=== PATIENT | female | born 1945 | race Caucasian/White ===

== ENCOUNTER → 2018-03-04 09:59 | Outpatient (CLI) | payer MEDICARE, OTHER, SELFPAY ==
--- NOTE | 2018-03-04 | DI.MG.S_ITS ---
BILATERAL DIGITAL SCREENING MAMMOGRAM 3D/2D WITH CAD: 03/04/2018 CLINICAL: Routine screening. Family history of breast cancer. Comparison is made to exams dated: 11/12/2016 mammogram, 11/08/2015 mammogram, and 10/05/2014 mammogram - [facility]. There are scattered fibroglandular elements in both breasts. Current study was also evaluated with a Computer Aided Detection (CAD) system. No significant masses, calcifications, or other findings are seen in either breast. There has been no significant interval change. IMPRESSION: NEGATIVE There is no mammographic evidence of malignancy. A 1 year screening mammogram is recommended.(03/05/2019) This exam was interpreted at Station ID: [id number]. NOTE: For mammograms, a report in lay terms will be sent to the patient. Approximately 15% of breast malignancies will not be visualized mammographically. In the management of a palpable breast mass, a negative mammogram must not discourage biopsy of a clinically suspicious lesion. Electronically Signed By: Atul walden/dane:03/04/2018 10:53:59 letter sent: Normal Exam ACR BI-RADS Category 1: Negative 3341F
== END ==
PROVIDERS: PCP Internal Medicine; Visit Provider Internal Medicine
DX: Z12.31 Encounter for screening mammogram for malignant neoplasm of breast (principal); Z80.3 Family history of malignant neoplasm of breast
CPT/HCPCS: 77063; 77067

== ENCOUNTER → 2019-03-17 09:24 | Outpatient (CLI) | payer MEDICARE, OTHER, SELFPAY ==
--- NOTE | 2019-03-17 | DI.MG.S_ITS ---
BILATERAL DIGITAL SCREENING MAMMOGRAM 3D/2D WITH CAD: 03/17/2019 CLINICAL: Routine screening. Family history of breast cancer. Comparison is made to exams dated: 03/04/2018 mammogram, 06/20/2017 mammogram, and 11/12/2016 mammogram - [facility]. There are scattered fibroglandular elements in both breasts. Current study was also evaluated with a Computer Aided Detection (CAD) system. No significant masses, calcifications, or other findings are seen in either breast. There has been no significant interval change. IMPRESSION: NEGATIVE There is no mammographic evidence of malignancy. A 1 year screening mammogram is recommended. This exam was interpreted at Station ID: [id number]. NOTE: For mammograms, a report in lay terms will be sent to the patient. Approximately 15% of breast malignancies will not be visualized mammographically. In the management of a palpable breast mass, a negative mammogram must not discourage biopsy of a clinically suspicious lesion. Electronically Signed By: Montana espinoza/dane:03/17/2019 11:22:38 letter sent: Normal Exam ACR BI-RADS Category 1: Negative 3341F
== END ==
PROVIDERS: PCP Internal Medicine; Visit Provider Internal Medicine
DX: Z12.31 Encounter for screening mammogram for malignant neoplasm of breast (principal); Z80.3 Family history of malignant neoplasm of breast
CPT/HCPCS: 77063; 77067

== ENCOUNTER → 2020-01-19 15:49 | Outpatient (CLI) | payer MEDICARE, OTHER, SELFPAY ==
--- NOTE | 2020-01-19 | DI.RAD.S_ITS ---
PROCEDURE: XR TOE RT MIN 2V INDICATIONS: jammed right grt toe 8 days ago, tender at IP joint TECHNIQUE: 3 views of the right toe(s) acquired. COMPARISON: None. FINDINGS: Bones: Intra-articular fracture of the distal phalanx of the great toe. Gross articular surface incongruity. 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 Soft tissues: No suspicious soft tissue densities. Soft tissue swelling. IMPRESSION: Intra-articular fracture of the distal phalanx of the great toe. Dictated by: Braulio Saenz M.D. on 01/19/2020 at 16:24 Approved by: Braulio Saenz M.D. on 01/19/2020 at 16:25
== END ==
PROVIDERS: PCP Internal Medicine; Visit Provider Family Medicine
DX: S92.421A Displaced fracture of distal phalanx of right great toe, initial encounter for closed fracture (principal); M19.071 Primary osteoarthritis, right ankle and foot; W22.8XXA Striking against or struck by other objects, initial encounter
CPT/HCPCS: 73660

== ENCOUNTER 2020-02-24 09:58 | Emergency (ER) | payer MEDICARE, OTHER, SELFPAY ==
[2020-02-24] VITALS (11 sets, daily range): BP systolic 96–164; BP diastolic 60–77; PULSE 66–80; RESP 18; TEMP 37.1; O2SAT 97–99; BMI 22.1
[2020-02-24 10:34] LABS: Prothrombin Time 11.5 SECONDS (10.1-12.7)
[2020-02-24 10:36] LABS: Add Manual Diff / Slide Review NO; Basophils Absolute Auto 0 /uL (0-100); Basophils Percent Auto 0.5 % (0-2); Eosinophils Absolute Auto 100 /uL (0-450); Eosinophils Percent Auto 1.1 % (2-4); Hematocrit 36.7 % (36-46); Hemoglobin 12.2 g/dL (12.0-16.0); Lymphocytes Absolute Auto 1200 /uL (1100-4500); Lymphocytes Percent Auto 22.3 % (25-40); Mean Corpuscular HGB Conc 33.2 % (30-36); Mean Corpuscular Volume 81.3 fL (80-100); Monocytes Absolute Auto 700 /uL (0-900); Monocytes Percent Auto 13.7 % (3-14); Neutrophils Absolute Auto 3300 /uL (1500-7000); Neutrophils Percent Auto 62.4 % (50-75); PTT Partial Thromboplastin Tim 31 SECONDS (26.4-36.2); Platelet Count 211 X10^3/uL (150-400); Red Blood Cell Count 4.51 X10^6/uL (4.0-5.2); Red Cell Distribution Width 13.2 % (11.6-14.8); White Blood Cell Count 5.3 X10^3/uL (4.5-11.0)
[2020-02-24 10:40] LABS: Alanine Aminotransferase 45 IU/L (<35); Albumin Globulin Ratio 1.3 (1.0-2.8); Alkaline Phosphatase 116 U/L (38-126); Aspartate Aminotransferase 34 IU/L (14-36); Bilirubin Total 0.4 mg/dL (0.2-1.3); Blood Urea Nitrogen 16 mg/dL (7-17); Calcium 9.5 mg/dL (8.4-10.2); Carbon Dioxide 30 mmol/L (22-32); Chloride 105 mmol/L (98-107); Estimated Glomerular Filt Rate > 60.0 mL/min (>60); Globulin 3.1 g/dL (1.7-4.1); Glucose 77 mg/dL (80-110); HEMOLYSIS < 15 (0-50); Lipase 115 U/L (23-300); Potassium 3.9 mmol/L (3.4-5.1); Sodium 141 mmol/L (137-145); Total Protein 7.1 g/dL (6.3-8.2)
--- NOTE | 2020-02-24 12:17 | DI.CT.S_ITS ---
PROCEDURE: CT ABDOMEN PELVIS W CON INDICATIONS: acute onset RLQ pain TECHNIQUE: After the administration of intravenous contrast, 5 mm thick sections acquired from the diaphragm to the symphysis. 5 mm coronal and sagittal reformats were acquired. For radiation dose reduction, the following was used: automated exposure control, adjustment of mA and/or kV according to patient size. COMPARISON: [facility], CT, ABDOMEN/PELVIS WITH CONTRAST, 02/16/2008, 16:50. FINDINGS: Image quality: Excellent. ABDOMEN: Lung bases: Lung bases are clear. Heart size is normal. Subcentimeter hepatic foci are statistically cysts or hemangiomas, although technically too small to characterize accurately and therefore nonspecific. Gallbladder contains sub 5 mm layering gallstones without CT evidence of acute cholecystitis . Biliary system is non dilated. Pancreas enhances normally. Spleen is normal in size and enhancement. No adrenal nodules. Kidneys demonstrate normal size and enhancement, without hydronephrosis. Midline ventral hernia containing fat and bowel loops. No evidence of obstruction seen at this time. Large amount of diffuse stool noted. No free fluid or air. Appendix is not clearly identified however no suspicious pericecal inflammatory changes are seen. Nodes and vessels: No retroperitoneal or mesenteric adenopathy by size criteria. Aorta and inferior vena cava are normal in size. PELVIS: Genitourinary: Bladder wall thickness is normal. Miscellaneous: No inguinal hernias or adenopathy. Bones: No vertebral body compression fracture. Spondylytic changes and facet arthropathy. IMPRESSION: Appendix is not clearly identified however no suspicious pericecal inflammatory changes are seen. Midline ventral hernia containing fat and bowel loops. No specific evidence for bowel obstruction seen at this time Additional chronic and incidental findings as above. Dictated by: Braulio Saenz M.D. on 02/24/2020 at 13:34 Approved by: Braulio Saenz M.D. on 02/24/2020 at 13:38
--- NOTE | 2020-02-24 13:22 | ED_ITS ---
HPI - Abdominal Pain General Chief Complaint: Abdominal Pain Stated Complaint: Has been having lower right abdominal pain Time Seen by Provider: 02/24/20 10:28 Source: patient Mode of arrival: Family Vehicle Limitations: no limitations History of Present Illness HPI narrative: 74-year-old woman with hyperlipidemia who presents with right lower quadrant abdominal pain. It began at 7:00 a.m. yesterday with intermit tent sharp stabbing pain persisted through the day and 3:00 a.m. walker up with consistency. She notes that it continues to be a sharp colicky pain in the right lower quadrant not associated with dysuria or flank pain. She has not noticed any hematuria. Denies any fevers, nausea, vomiting, diarrhea. She did have a bowel movement recently that did not influence her pain at all. She denies any chest pain, palpitations or dyspnea. Related Data Home Medications Medication Instructions Recorded Confirmed CALCIUM ACETATE (Phoslo) 0 PO * UK DOSE/FREQUENCY #0 07/07/07 CHOLECALCIFEROL (VITAMIN D3) 0 PO WEEKLY #0 07/07/07 (Vitamin D3) LEVOTHYROXINE SODIUM (Synthroid) 0 PO *UK DOSE/FREQUENCY* #0 07/07/07 Review of Systems Review of Systems Narrative: Remainder of review of systems including constitutional, ENT, cardiovascular, respiratory, GI, , musculoskeletal, skin, neurologic and psychiatric systems reviewed and are unremarkable except as noted in HPI. Patient History Social History Smoking Status: Never smoker Smoking Status: Never smoker alcohol intake frequency: 0-2 drinks per day Substance Use Type: does not use Exam Narrative Exam Narrative: General: Healthy appearing, in no acute distress. Able to give a complete and coherent history. Well-nourished well-developed HEENT: Moist mucous membranes, normal sclera with reactive pupils, Neck: No JVD, supple Respiratory: Lungs are clear to auscultation, no wheezing no rales no rhonchi. Full and symmetrical air movement Cardiac: Regular rate and rhythm with a soft 2/6 systolic ejection murmur no bruits Abdomen: Soft, nontender to palpation (unable to reproduce her pain complaints) good bowel tones, no flank pain Skin: Warm and dry, no rashes Neurologic: Grossly neurologically intact with no obvious asymmetries or ab normalities Extremities: No trauma, well perfused Psych: Cooperative, appropriate insight and affect Initial Vital Signs Initial Vital Signs: Vital Signs Pulse Rate 80 02/24/20 10:12 Pulse Oximetry 97 02/24/20 10:12 Course Orders Ordered: ED Orders 02/24/20 10:20 Complete Blood Count AUTO DIFF Stat Comprehensive Metabolic Panel Stat Lipase Stat Partial Thromboplastin Time Stat Prothrombin Time INR Stat 02/24/20 11:08 EKG-12 Lead Stat 02/24/20 12:17 CT abdomen pelvis w con Stat Vital Signs Vital signs: Vital Signs - 8 hr 02/24/20 10:12 02/24/20 10:13 02/24/20 10:24 Temperature 98.7 F Pulse Rate 80 79 79 Respiratory Rate 18 Blood Pressure 164/77 H 164/77 H Pulse Oximetry 97 99 98 02/24/20 10:30 02/24/20 11:26 02/24/20 11:28 Temperature Pulse Rate 75 66 69 Respiratory Rate Blood Pressure 131/60 Pulse Oximetry 97 99 98 02/24/20 11:30 02/24/20 12:00 Temperature Pulse Rate 67 69 Respiratory Rate Blood Pressure Pulse Oximetry 99 99 MDM - Abdominal Pain Medical Records Attestation: I reviewed the patient's medical records. Lab Data Attestation: I reviewed the patient's lab results. Result diagrams: 02/24/20 10:20 02/24/20 10:20 Labs: Lab Results 02/24/20 02/24/20 02/24/20 Range/Units 10:20 10:20 10:20 WBC 5.3 (4.5-11.0) X10^3/uL RBC 4.51 (4.0-5.2) X10^6/uL Hgb 12.2 (12.0-16.0) g/dL Hct 36.7 (36-46) % MCV 81.3 (80-100) fL MCH 27.0 (26-34) PG MCHC 33.2 (30-36) % RDW 13.2 (11.6-14.8) % Plt Count 211 (150-400) X10^3/uL Neut % (Auto) 62.4 (50-75) % Lymph % (Auto) 22.3 L (25-40) % [place] % (Auto) 13.7 (3-14) % Eos % (Auto) 1.1 L (2-4) % Baso % (Auto) 0.5 (0-2) % Neut # (Auto) 3300 (2430-8396) /uL Lymph # (Auto) 1200 (4885-0271) /uL [place] # (Auto) 700 (0-900) /uL Eos # (Auto) 100 (0-450) /uL Baso # (Auto) 0 (0-100) /uL PT 11.5 (10.1-12.7) SECONDS INR 1.0 (0.9-1.3) APTT 31 (26.4-36.2) SECONDS Sodium 141 (137-145) mmol/L Potassium 3.9 (3.4-5.1) mmol/L Chloride 105 (98-107) mmol/L Carbon Dioxide 30 (22-32) mmol/L BUN 16 (7-17) mg/dL Creatinine 0.47 L (0.52-1.04) mg/dL Estimated GFR > 60.0 (>60) mL/min BUN/Creatinine Ratio 34.0 H (6-22) Glucose 77 L (80-110) mg/dL Calcium 9.5 (8.4-10.2) mg/dL Total Bilirubin 0.4 (0.2-1.3) mg/dL AST 34 (14-36) IU/L ALT 45 H (<35) IU/L Alkaline Phosphatase 116 (38-126) U/L Total Protein 7.1 (6.3-8.2) g/dL Albumin 4.0 (3.5-5.0) g/dL Globulin 3.1 (1.7-4.1) g/dL Albumin/Globulin Ratio 1.3 (1.0-2.8) Lipase 115 (23-300) U/L Point of care testing: Urine Dip Bedside Urine Glucose Negative Bedside Urine Bilirubin - Negative Bedside Urine Ketone - Negative Urine Specific [place] 1.010 Bedside Urine Occult Blood - Negative Bedside Urine pH 7.5 Bedside Urine Protein - Negative Bedside Urine Urobilinogen - Negative Bedside Urine Nitrite - Negative Bedside Urine Leukocytes - Negative Esterase Imaging Data CT scan - abdomen/pelvis: Radiologist's Impression: FINDINGS: Image quality: Excellent. ABDOMEN: Lung bases: Lung bases are clear. Heart size is normal. Subcentimeter hepatic foci are statistically cysts or hemangiomas, although technically too small to characterize accurately and therefore nonspecific. Gallbladder contains sub 5 mm layering gallstones without CT evidence of acute cholecystitis . Biliary system is non dilated. Pancreas enhances normally. Spleen is normal in size and enhancement. No adrenal nodules. Kidneys demonstrate normal size and enhancement, without hydronephrosis. Midline ventral hernia containing fat and bowel loops. No evidence of obstruction seen at this time. Large amount of diffuse stool noted. No free fluid or air. Appendix is not clearly identified however no suspicious pericecal inflammatory changes are seen. Nodes and vessels: No retroperitoneal or mesenteric adenopathy by size criteria. Aorta and inferior vena cava are normal in size. PELVIS: Genitourinary: Bladder wall thickness is normal. Miscellaneous: No inguinal hernias or adenopathy. Bones: No vertebral body compression fracture. Spondylytic changes and facet arthropathy. IMPRESSION: Appendix is not clearly identified however no suspicious pericecal inflammatory changes are seen. Midline ventral hernia containing fat and bowel loops. No specific evidence for bowel obstruction seen at this time Additional chronic and incidental findings as above. Dictated by: Braulio Saenz M.D. on 02/24/2020 at 13:34 ECG Data Interpretation: Sinus rhythm at a rate of 69 Normal intervals, normal axis No acute ST T wave changes or other ischemic findings MDM Narrative Medical decision making narrative: 74-year-old woman presents with 24 hours of colicky right lower quadrant pain without evidence of infection, appendicitis, kidney stone, UTI, pelvic infection, bowel obstruction/mass/tumor. No evidence of zoster other things that might offer an alternate explanation. When asked about bowel movements she was not even from milieu with the idea of stool softeners as that has never been an issue for her in her lifetime At this point I explained that I do not have a full explanation for her abdominal pain however there are no life-threatening causes identified currently. Clearly reviewed if she has additional problems that she should return to the emergency room for additional evaluation. She is safe for home discharge Discharge Plan Departure Patient Disposition: Home Clinical Impression: Abdominal pain Qualifiers: Abdominal location: left lower quadrant Qualified Code(s): R10.32 - Left lower quadrant pain Instructions: DI for Abdominal Pain-Adult Activity Restrictions/Additional Instructions: Thank you for coming in today Your workup was very reassuring. Your blood work did not suggest acute abnormalities or infection. Your CT scan similarly did not show significant infection (specifically there is no appendicitis), kidney stones, bowel obstruction, twists or turns to your bowel that are unusual or any tumors or masses. At this point it is safe for you to go home. If you note that you are having fevers, increasing pain, any blood in your stool, vomiting or new symptoms it would be very appropriate to return to the ER for additional evaluation. I hope you feel better Prescriptions: No Action CALCIUM ACETATE (Phoslo) 0 PO * UK DOSE/FREQUENCY Qty: 0 RF: 0 LEVOTHYROXINE SODIUM (Synthroid) 0 PO *UK DOSE/FREQUENCY* Qty: 0 RF: 0 CHOLECALCIFEROL (VITAMIN D3) (Vitamin D3) 0 PO WEEKLY Qty: 0 RF: 0 Referrals: Homer Dawson MD [Primary Care Provider] -
== END 2020-02-24 14:07 | disposition home or self-care (01) ==
PROVIDERS: Emergency Provider Emergency Medicine; PCP Internal Medicine
DX: R10.31 Right lower quadrant pain (principal)
CPT/HCPCS: 36415; 74177; 80053; 81003; 83690; 85025; 85610; 85730; 93005; 99283; Q9967

== ENCOUNTER → 2020-06-20 19:34 | Outpatient (ROUT) | payer MEDICARE, OTHER, SELFPAY ==
[2020-06-20 20:38] LABS: Prolactin 12.9 ng/mL (3.0-18.6)
[2020-06-22 06:39] LABS: Thyroid Peroxidase Antibodies >600 IU/mL (0-34)
== END ==
PROVIDERS: PCP Internal Medicine; Visit Provider Internal Medicine
DX: E22.1 Hyperprolactinemia (principal); E05.90 Thyrotoxicosis, unspecified without thyrotoxic crisis or storm
CPT/HCPCS: 83001; 84146; 84445; 86376

== ENCOUNTER → 2020-06-22 09:12 | Outpatient (CLI) | payer MEDICARE, OTHER, SELFPAY ==
--- NOTE | 2020-06-22 | DI.MRI.S_ITS ---
PROCEDURE: MR BRAIN (IAC) WWO CON INDICATIONS: Unspecified hearing loss, left ear Thyrotoxicosis TECHNIQUE: Noncontrast sagittal T1 spin echo, axial FLAIR, axial gradient echo, axial diffusion and ADC through the brain. Axial thin-slice 3D CISS, coronal TruFISP, axial T1 spin echo with fat saturation through the internal auditory canals. After the administration of contrast, thin slice axial and coronal T1 spin echo with fat saturation through the internal auditory canals, and axial T1 spin echo with fat saturation through the brain. COMPARISON: None. FINDINGS: Image quality: Excellent. Cerebellopontine angles: No cerebellopontine angle masses. Inner ear structures appear normally formed. No suspicious enhancement in the internal auditory canal or along the course of the 7th cranial nerve. CSF spaces: Ventricles are normal in size and shape. No extra-axial fluid collections. Basal cisterns are patent. Brain: No intracranial bleeds or mass effects. Hernandez-white matter interface is intact. No abnormal intracranial enhancement. Diffusion weighted images demonstrate no acute ischemic insults. Brain parenchymal volume loss is seen. Chronic small vessel ischemic changes can be seen. Brainstem appears normal. Normal intravascular flow voids are present. Skull and face: Calvarial marrow signal is normal. Orbits appear normal. Sinuses: Sinuses and mastoids are clear. IMPRESSION: No significant abnormality is seen. Specifically, no masses or abnormal enhancement are seen within the cerebellopontine angle cisterns or within the internal auditory canals. Note is made of age-appropriate brain parenchymal volume loss and chronic small vessel ischemic changes. Dictated by: Spike Hill M.D. on 06/22/2020 at 9:22 Approved by: Spike Hill M.D. on 06/22/2020 at 9:23
--- NOTE | 2020-06-22 | DI.US.S_ITS ---
PROCEDURE: US THYROID INDICATIONS: Unspecified hearing loss, left ear Thyrotoxicosis TECHNIQUE: Real-time scanning was performed of the thyroid gland, with image documentation. COMPARISON: None. FINDINGS: Right: Thyroid lobe measures 4.8 x 1.8 x 2.1 cm, and is heterogeneous in echo pattern with diffuse increased vascularity, without focal nodule identified. Left: Thyroid lobe measures 4.5 x 1.4 x 1.8 cm, and is heterogeneous in echo pattern with diffuse increased vascularity without focal nodule identified. Isthmus: 2 mm thick. IMPRESSION: Diffuse heterogeneous thyroid without focal nodules with increased vascularity. Findings are consistent with possible acute thyroiditis. Dictated by: Aaron Campos M.D. on 06/22/2020 at 11:38 Approved by: Aaron Campos M.D. on 06/22/2020 at 11:41
== END ==
PROVIDERS: PCP Internal Medicine; Referring Provider Internal Medicine; Visit Provider Internal Medicine
DX: H91.92 Unspecified hearing loss, left ear (principal); E05.90 Thyrotoxicosis, unspecified without thyrotoxic crisis or storm
CPT/HCPCS: 70553; 76536; A9579

== ENCOUNTER → 2020-07-18 08:38 | Outpatient (CLI) | payer MEDICARE, OTHER, SELFPAY ==
--- NOTE | 2020-07-18 | DI.NM.S_ITS ---
PROCEDURE: NM UPTAKE AND SCAN RADIOPHARMACEUTICAL: 380 ?Ci I-123 sodium iodide by mouth. INDICATIONS: Thyrotoxicosis, unspecified TECHNIQUE: I-123 sodium iodide was administered orally. Anterior neck images were obtained, and iodine uptake by the thyroid gland calculated using transport coordinator's software. COMPARISON: None. FINDINGS: Morphology: The thyroid gland has normal morphology and uniform activity. No 'cold' or 'hot' thyroid nodules are identified. Uptake: 6 hour thyroid uptake is 39.6%; normal ranges are from 6-18%. 24 hour thyroid uptake is 64.3 % ; normal ranges are from 10-30%. IMPRESSION: Abnormal elevated 6 hour and 24 hour isotope uptake with reference to the normal range values as noted above. Dictated by: Truong Spencer M.D. on 07/19/2020 at 9:56 Approved by: Truong Spencer M.D. on 07/19/2020 at 9:59
== END ==
PROVIDERS: PCP Internal Medicine; Referring Provider Internal Medicine; Visit Provider Internal Medicine
DX: E05.90 Thyrotoxicosis, unspecified without thyrotoxic crisis or storm (principal)
CPT/HCPCS: 78014; A9516

== ENCOUNTER → 2020-10-04 09:43 | Outpatient (CLI) | payer MEDICARE, OTHER, SELFPAY | PROVIDERS: PCP Internal Medicine; Referring Provider Internal Medicine; Visit Provider Internal Medicine | DX: M85.88 Other specified disorders of bone density and structure, other site (principal); Z78.0 Asymptomatic menopausal state; E05.00 Thyrotoxicosis with diffuse goiter without thyrotoxic crisis or storm | CPT/HCPCS: 77080 ==

== ENCOUNTER → 2020-10-12 10:51 | Outpatient (CLI) | payer MEDICARE, OTHER, SELFPAY ==
--- NOTE | 2020-10-12 | DI.MG.S_ITS ---
BILATERAL DIGITAL SCREENING MAMMOGRAM 3D/2D WITH CAD: 10/12/2020 CLINICAL: Routine screening. Family history of breast cancer. Comparison is made to exams dated: 03/17/2019 mammogram, 03/04/2018 mammogram, 06/20/2017 mammogram, and 11/12/2016 mammogram - [facility]. There are scattered fibroglandular elements in both breasts. Current study was also evaluated with a Computer Aided Detection (CAD) system. There are mole markers on both breasts. No significant masses, calcifications, or other findings are seen in either breast. There has been no significant interval change. IMPRESSION: NEGATIVE There is no mammographic evidence of malignancy. A 1 year screening mammogram is recommended. This exam was interpreted at Station ID: [id number]. NOTE: For mammograms, a report in lay terms will be sent to the patient. Approximately 15% of breast malignancies will not be visualized mammographically. In the management of a palpable breast mass, a negative mammogram must not discourage biopsy of a clinically suspicious lesion. Electronically Signed By: Rosalio Bone acr/penrad:10/12/2020 17:27:31 letter sent: Normal Exam ACR BI-RADS Category 1: Negative 3341F
== END ==
PROVIDERS: PCP Internal Medicine; Referring Provider Internal Medicine; Visit Provider Internal Medicine
DX: Z12.31 Encounter for screening mammogram for malignant neoplasm of breast (principal); Z80.3 Family history of malignant neoplasm of breast
CPT/HCPCS: 77063; 77067

== ENCOUNTER → 2020-10-25 19:31 | Outpatient (ROUT) | payer MEDICARE, OTHER, SELFPAY ==
[2020-10-25 20:13] LABS: Free T3, Triiodothyronine Free 4.86 pg/mL (2.77-5.27); Free T4, Direct Thyroxine 1.01 ng/dL (0.78-2.19); T4 Total Thyroxine 7.77 ug/dL (5.5-11.0)
[2020-10-25 20:26] LABS: Thyroid Stimulating Hormone < 0.015 uIU/mL (0.47-4.68)
[2020-10-26 22:36] LABS: Triiodothyronine T3 Total 169 ng/dL (71-180)
== END ==
PROVIDERS: PCP Internal Medicine; Visit Provider Internal Medicine
DX: E05.00 Thyrotoxicosis with diffuse goiter without thyrotoxic crisis or storm (principal)
CPT/HCPCS: 84436; 84439; 84443; 84480; 84481

== ENCOUNTER → 2021-10-30 11:27 | Outpatient (CLI) | payer MEDICARE, OTHER, SELFPAY ==
--- NOTE | 2021-10-30 | DI.MG.S_ITS ---
BILATERAL DIGITAL SCREENING MAMMOGRAM 3D/2D WITH CAD: 10/30/2021 CLINICAL: Routine screening. Family history of breast cancer. Comparison is made to exams dated: 10/12/2020 mammogram, 03/17/2019 mammogram, and 03/04/2018 mammogram - [facility]. There are scattered fibroglandular elements in both breasts. Current study was also evaluated with a Computer Aided Detection (CAD) system. There are mole markers on both breasts. No significant masses, calcifications, or other findings are seen in either breast. There has been no significant interval change. IMPRESSION: NEGATIVE There is no mammographic evidence of malignancy. A 1 year screening mammogram is recommended. This exam was interpreted at Station ID: [id number]. NOTE: For mammograms, a report in lay terms will be sent to the patient. Approximately 15% of breast malignancies will not be visualized mammographically. In the management of a palpable breast mass, a negative mammogram must not discourage biopsy of a clinically suspicious lesion. Electronically Signed By: Darryl santos/dane:10/30/2021 11:45:51 letter sent: Normal Exam ACR BI-RADS Category 1: Negative 3341F
== END ==
PROVIDERS: PCP Internal Medicine; Referring Provider Internal Medicine; Visit Provider Internal Medicine
DX: Z12.31 Encounter for screening mammogram for malignant neoplasm of breast (principal); Z80.3 Family history of malignant neoplasm of breast; M81.0 Age-related osteoporosis without current pathological fracture; Z78.0 Asymptomatic menopausal state
CPT/HCPCS: 77063; 77067; 77080

== ENCOUNTER → 2022-06-08 10:52 | Outpatient (CLI) | payer MEDICARE, OTHER, SELFPAY ==
[2022-06-08 13:50] LABS: COVID19 -Nasal RAPID Negative (Negative)
== END ==
PROVIDERS: PCP Internal Medicine; Visit Provider Surgery
DX: Z01.812 Encounter for preprocedural laboratory examination (principal); Z20.822 Contact with and (suspected) exposure to COVID-19
CPT/HCPCS: 87635; C9803

== ENCOUNTER 2022-06-11 13:50 | Day surgery (SDC) | payer MEDICARE, OTHER, SELFPAY ==
--- NOTE | 2022-06-11 | PATH_ITS ---
[facility] Accession Number: [id number] No. of containers..01 Tissue . 01 Material submitted: . colon - TRANSVERSE POLYP . 01 Diagnosis: Transverse Colon, Polyp, Biopsy: Tubular adenoma. MRV 06/13/2022 1016 Local . 01 Electronically signed: . Luma Louie MD, Pathologist NPI- [id number] . 01 Gross description: . TRANSVERSE POLYP: Received in formalin is 1 fragment(s) of lutz, soft tissue measuring 0.2 x 0.1 x 0.1 cm submitted entirely in 1 cassette(s) /CPE 06/12/2022 0544 Local . 01 Pathologist provided ICD-10: D12.3 . 01 CPT . 429485 Specimen Comment: A courtesy copy of this report has been sent to [phone] Performed at: 01 [facility] [address] [place] [address], [place], [place] [id number] MD Atul Lang MD Phone: [phone]
[2022-06-11 14:14] VITALS: BP 124/62; PULSE 92; RESP 16; TEMP 37; O2SAT 98; BMI 21.4
[2022-06-11] MEDS: LACTATED RINGERS 1,000 ML 42 ML IV (14:38)
--- NOTE | 2022-06-11 15:12 | P.HP_ITS ---
History of Present Illness History of Present Illness Date Patient Seen: 06/11/22 Time Patient Seen: 15:12 Chief complaint: DX COLONOSCOPY Narrative: Positive Cologuard. I reviewed my recent office note. Patient History Medical History Graves disease (~2007) Osteoporosis Rupture of colon Surgical History History of colostomy reversal Hx of colostomy Family & Social History Social History: household members spouse Tobacco & Substance use: Smoking Status Never smoker alcohol intake never alcohol intake frequency 0-2 drinks per day Substance Use Type does not use Meds Home Medications and Allergies Home Medications Medication Instructions Recorded Confirmed Type CALCIUM ACETATE (Phoslo) See Rx Instructions .Route 07/07/07 06/11/22 History .COMPLEX ##0 CHOLECALCIFEROL (VITAMIN D3) See Rx Instructions .Route 07/07/07 06/11/22 History (Vitamin D3) .COMPLEX ##0 methimazole See Rx Instructions .Route .COMPLEX 06/11/22 06/11/22 History rosuvastatin See Rx Instructions .Route .COMPLEX 06/11/22 06/11/22 History Allergies Allergy/AdvReac Type Severity Reaction Status Date / Time No Known Drug Allergies Allergy Verified 06/11/22 14:33 Review of Systems Review of Systems ROS: Yes All systems reviewed with the patient and are negative except as other uribe documented Exam Vital Signs (past 8 hours): - 06/11/22 14:14 Temperature 98.6 F Pulse Rate 92 H Respiratory Rate 16 Blood Pressure 124/62 Pulse Oximetry 98 Oxygen Delivery Method Room Air Oxygen Delivery Method Room Air Const General: cooperative HENMT Head: normal to inspection Eyes General: appearance normal, both eyes and all related structures Neck Neck: normal visual inspection Chest Chest: normal inspection of the chest Resp Effort & Inspection: normal respiratory effort Cardio Rate: regular rate GI Inspection: normal to inspection Skin General: no rashes or lesions noted Neuro General: patient alert and patient awake Extrem General: normal to inspection and no pedal edema Psych Appearance: grossly normal Assessment & Plan Assessment & Plan narrative: 76-year-old female with a positive Cologuard. Follow-up colonoscopy is planned for today. Time Spent With Patient Critical Care time: I spent a total of [] minutes of critical care time on this patient's care today; this time is exclusive of procedural time.
--- NOTE | 2022-06-11 15:14 | PM.PREOP ---
Pre-operative Note COVID-19 COVID-19 status: Negative Result date/Date tested (Pos, Neg/Pending): 06/08/22 Criteria for continued procedure: Possibility delay results in more complex future surgery or treatment Interval Note History & Physical reviewed/Exam performed by Physician: Yes Changes to H&P: No ASA Class (for procedural sedation): II
--- NOTE | 2022-06-11 15:36 | PM.OP.COLON ---
Operative Date/Time/Diagnoses Date of procedure: 06/11/22 Time of procedure: 15:36 Pre-op diagnosis: Positive Cologuard Post-op diagnosis: same Procedure & Clinicians Study performed: Colonoscopy with cold forceps polypectomy Same procedure as scheduled: Yes Indications: Positive Cologuard Surgeon: Ji Buckner Procedure Notes SCOAP/Timeout: Done Procedure in detail: After the risks and benefits were explained, written and verbal informed consent was obtained. The patient was brought into the procedure room and placed into the left lateral decubitus position. Please see anesthesia note for sedation details. Digital rectal examination was accomplished. The scope was introduced into the patient and advanced under direct visualization to the cecum as identified by the appendiceal orifice and ileocecal valve. The scope was slowly withdrawn to carefully examine the mucosa for any defects or lesions. Comprehensive imaging was accomplished throughout the rectum including the dentate line. The colon was decompressed, the scope was then removed from the patient who tolerated the procedure well. Pediatric colonoscope Bowel prep adequate Scope withdrawal time: 8 minutes Sedation minutes: 17 Complications: none Impression: There was a side to end colon rectal anastomosis at about 15 cm from the anal verge. This was widely patent. The patient had a fairly challenging navigation secondary to colon tortuosity. During the exam we placed hand over the right abdomen to prevent distention of any abdominal wall herniation. There was a diminutive polyp removed with cold forceps from approximately 45 cm from the anal verge in the transverse colon. No additional pathology was appreciated throughout. Endoscopic diagnosis 1. Diminutive colon polyp 2. Patent side to end colorectal anastomosis Post-procedure Plan for aftercare: 1. Await histopathology. 2. Timing of surveillance colonoscopy will be considered after review of the pathology results. Disposition: PACU
[2022-06-11 15:44] VITALS: BP 81/58; PULSE 64; RESP 16; TEMP 36.8; O2SAT 99
[2022-06-11 15:51] VITALS: BP 104/61; PULSE 59; RESP 16; O2SAT 99
[2022-06-11 15:56] VITALS: BP 118/66; PULSE 63; RESP 16; O2SAT 99
[2022-06-11 16:02] VITALS: BP 118/66; PULSE 54; RESP 16; TEMP 36.8; O2SAT 98
== END 2022-06-11 16:18 | disposition home or self-care (01) ==
PROVIDERS: PCP Internal Medicine; Referring Provider Internal Medicine Gastroenterology; Visit Provider Internal Medicine Gastroenterology
PROC: 0DJD8ZZ Inspection of Lower Intestinal Tract, Via Natural or Artificial Opening Endoscopic (ICD-10-PCS; CPT 45378; principal; 2022-06-11 15:00)
DX: R19.5 Other fecal abnormalities (principal); D12.3 Benign neoplasm of transverse colon
CPT/HCPCS: 45380; J2250; J3010

== ENCOUNTER 2022-07-26 09:07 | Inpatient (IN) | payer MEDICARE, OTHER, SELFPAY ==
[2022-07-19 10:19] VITALS: BMI 21.4
[2022-07-25] VITALS (17 sets, daily range): BP systolic 90–145; BP diastolic 37–77; PULSE 59–85; RESP 14–20; TEMP 36–36.7; O2SAT 95–100; BMI 21.4
[2022-07-25] MEDS: LACTATED RINGERS 1,000 ML 100 ML IV (08:05)
--- NOTE | 2022-07-25 08:29 | PM.PREOP ---
Pre-operative Note Interval Note History & Physical reviewed/Exam performed by Physician: Yes Changes to H&P: No
[2022-07-25] MEDS: CEFAZOLIN 2 GM/100 ML PREMIX 100 ML IV (08:55)
[2022-07-25] MEDS: BUPIVACAINE 0.25% W/ EPI 30 ML VIAL INJ (09:01)
--- NOTE | 2022-07-25 09:02 | SUR.OPER ---
Supine on padded OR bed, head on pillow, arms secured on padded arm boards at <90 degrees abduction, legs uncrossed, safety belt at thigh, tape over blanket over lower legs. Pt positioned per direction and supervision of Dr Thibodeaux.
[2022-07-25] MEDS: VANCOMYCIN 1,000 MG VIAL 1000 MG TOP (10:07)
[2022-07-25] MEDS: METHYLENE BLUE 50 MG/10 ML VIAL 15 MG INJ (10:37)
[2022-07-25] MEDS: LACTATED RINGERS 1,000 ML 120 ML IV (10:53)
--- NOTE | 2022-07-25 12:01 | PM.OP.1 ---
Operative Date/Time/Diagnoses Date of procedure: 07/25/22 Time of procedure: 12:01 Pre-op diagnosis: incisional ventral hernia Post-op diagnosis: other (incisional ventral hernia, iatrogenic bladder injury) Procedure & Clinicians Procedure: open repair of incisional ventral hernia repair of intraperitoneal bladder injury Same procedure as scheduled: No Indications: Ms. Delong is a 76-year-old woman with a history of colonic perforation managed with a temporary colostomy followed by reversal. She has developed a symptomatic bowel containing incisional hernia of the lower midline and is here today for open ventral hernia repair with mesh. Surgeon: Rolando Thibodeaux Click Yes if Unassisted: Yes Operative Notes Findings: 1.5 cm full-thickness injury to the dome of the bladder. Following 2 layer repair of the bladder with instillation of methylene blue no evidence of ongoing leak. Specimen(s): none sent Estimated Blood Loss (mL): 20 Procedure in detail: Patient was brought to the operating room and placed supine on the table. Bilateral lower extremity compression devices were applied. General anesthesia was induced and she was intubated with an endotracheal tube. She was then prepped and draped in sterile condition. She received 2 g of Ancef prior to skin incision. A surgical time-out was performed. The prior lower midline incision was incised with a knife. The subcutaneous tissue was divided with electrocautery. The fascia was exposed and there was a Georgian cheese defect within the midline containing bowel. The fascia was carefully elevated and sharply incised and the abdomen was entered atraumatically. The abdominal viscera was densely adhesed to the midline. With sharp dissection a complete lysis of adhesions was performed in order to entirely release the bowel bowel from the abdominal wall. A fascial defect was also noted in the left lower abdominal wall at the prior colostomy site. A towel was then placed over the viscera to protect it during the development of the retro rectus space. The retro rectus space was developed bilaterally. The posterior rectus sheath was incised approximately 1 cm lateral to its edge initiated at the level of the umbilicus. The belly of the rectus muscle was identified. Beginning with the left side the retro muscular plane was developed using electrocautery. The plane was further developed laterally by applying Colton clamps to the posterior sheath and linea alba was elevated. The dissection was carried out to the linea semilunaris. Small branches of the epigastric vessels were encountered and controlled with electrocautery. The right abdominal wall was then approached in the same fashion. The posterior sheath was then released at the level of the umbilicus. Attention was then turned towards the pelvic dissection. Patient was then placed in steep Trendelenburg position. The rectus muscles were elevated and dissection was carried down to expose Amando's ligament bilaterally. Next attention was turned towards the development of the space of Retzius bilaterally in order to expose the pubic symphysis. The posterior sheath was then dissected off of the pubic symphysis. It was at this time that I noticed a small volume of clear fluid within the abdomen. Concerned that this may represent a bladder injury a Zelaya catheter was sterilely placed and the bladder was instilled with saline mixed with methylene blue. This demonstrated a leak from the dome of the bladder of approximately 1.5 cm in length full-thickness. The dome of the bladder was tightly adhered to the pubic symphysis and the right Amando's ligament. With careful dissection the dome of the bladder was freed from its adhesions. I consulted with Urology, Dr. Bello. A 2 layer closure of the bladder was performed using 4-0 Monocryl. The 1st layer was closed in running fashion using Monocryl. The bladder was then distended with approximately 300 mL of sterile fluid and there was a small leak from the suture line. The bladder serosa was then closed in an imbricating fashion for a 2nd layer closure and then the bladder was then once again distended with methylene blue and there was no further evidence of leak. At this point given the bladder injury I decided to proceed with a tissue only repair of her ventral hernia no mesh. The abdomen was copiously irrigated with sterile saline mixed with vancomycin. The hernia sac at the left abdominal wall at the prior colostomy site was excised and then the posterior sheath was closed with Vicryl suture. Next the midline posterior sheath which was quite attenuated was closed with 2-0 Vicryl in running fashion. The anterior sheath was exposed bilaterally raising skin flaps. The anterior sheath was then closed without tension in a running fashion using small suture bites with 1. PDS suture. A 19 Greenlandic drain was then placed into the subcutaneous space over the anterior sheath and brought out through the skin secured with nylon suture. Subcutaneous tissue was then reapproximated using 3-0 Vicryl and the skin closed with 4-0 Monocryl. The Zelaya catheter was inspected there was no evidence of hematuria and adequate urine output was noted. Patient then emerged from anesthesia and was transferred to recovery room in stable condition. I then went and spoke with the patient's and daughter to update them on her condition. Complications: other (iatrogenic bladder injury) Post-operative Condition: stable Disposition: observation Plan for aftercare: She will be kept for observation overnight. Anticipate discharge home tomorrow if well with plan for indwelling Zelaya catheter for 10 days. At this point a CT cystogram will be performed and if there is no evidence of leak the catheter can be removed.
[2022-07-25] MEDS: ACETAMINOPHEN 325 MG TABLET 650 MG PO ×3 (12:20→23:44)
[2022-07-25 12:28] LABS: COVID19 -Nasal RAPID Negative (Negative)
[2022-07-25] MEDS: PIPERACILLIN/TAZO 3.375 GM in SODIUM CHLORIDE 0.9% 100 ML IV ×2 (13:11→23:42)
[2022-07-25] MEDS: KETOROLAC 30 MG/ML VIAL 15 MG IV ×2 (13:12→19:48)
[2022-07-25 14:24] LABS: Estimated Glomerular Filt Rate > 60 mL/min (>60)
[2022-07-26] VITALS: O2SAT 95
[2022-07-26 04:00] VITALS: O2SAT 96
[2022-07-26] MEDS: KETOROLAC 30 MG/ML VIAL 15 MG IV ×2 (04:07→12:55)
[2022-07-26 04:15] VITALS: BP 101/52; PULSE 68; RESP 18; TEMP 36.8; O2SAT 97
[2022-07-26 05:11] LABS: Add Manual Diff / Slide Review NO; Basophils Absolute Auto 0 /uL (0-100); Basophils Percent Auto 0.1 % (0-2); Eosinophils Absolute Auto 0 /uL (0-450); Hematocrit 25.7 % (36-46); Hemoglobin 8.7 g/dL (12.0-16.0); Lymphocytes Absolute Auto 800 /uL (1100-4500); Lymphocytes Percent Auto 8.2 % (25-40); Mean Corpuscular HGB Conc 33.7 % (30-36); Mean Corpuscular Volume 80.2 fL (80-100); Monocytes Absolute Auto 700 /uL (0-900); Monocytes Percent Auto 7.3 % (3-14); Neutrophils Absolute Auto 8300 /uL (1500-7000); Neutrophils Percent Auto 84.4 % (50-75); Platelet Count 175 X10^3/uL (150-400); Red Cell Distribution Width 15.2 % (11.6-14.8); White Blood Cell Count 9.8 X10^3/uL (4.5-11.0)
[2022-07-26 05:19] LABS: BUN Creatinine Ratio 15.4 (6-22); Blood Urea Nitrogen 10 mg/dL (7-17); Calcium 8.3 mg/dL (8.4-10.2); Carbon Dioxide 27 mmol/L (22-32); Chloride 104 mmol/L (98-107); Estimated Glomerular Filt Rate > 60 mL/min (>60); Glucose 103 mg/dL (80-110); HEMOLYSIS < 15 (0-50); Potassium 4.1 mmol/L (3.4-5.1); Sodium 135 mmol/L (137-145)
[2022-07-26] MEDS: ACETAMINOPHEN 325 MG TABLET 650 MG PO ×2 (06:23→12:56)
[2022-07-26] MEDS: PIPERACILLIN/TAZO 3.375 GM in SODIUM CHLORIDE 0.9% 100 ML IV (06:23)
[2022-07-26 08:00] VITALS: BP 108/54; PULSE 65; RESP 18; TEMP 36.9; O2SAT 96; O2SAT 97
[2022-07-26] MEDS: ENOXAPARIN 40 MG/0.4 ML SYRINGE SUBCUT (08:52)
[2022-07-26 12:00] VITALS: O2SAT 97
== END 2022-07-26 15:08 | disposition home or self-care (01) | DRG 346 ==
LOC: OR 12:23 → AC 12:23
PROVIDERS: Admitting Provider Surgery; Referring Provider Surgery; Visit Provider Surgery
PROC: 0DQV0ZZ Repair Mesentery, Open Approach (ICD-10-PCS; principal; 2022-07-25 08:45)
DX: K43.2 Incisional hernia without obstruction or gangrene (principal); N99.81 Other intraoperative complications of genitourinary system; Z20.822 Contact with and (suspected) exposure to COVID-19
CPT/HCPCS: 36415; 49591; 80048; 82565; 85025; 87635; C9803; J0690; J1100; J1650; J1885; J2250; J2405; J2543; J2704; J3010; Q9968

== ENCOUNTER 2022-08-07 16:12 | Emergency (ER) | payer MEDICARE, OTHER, SELFPAY ==
[2022-07-25 12:44] VITALS: BMI 21.4
[2022-08-07 16:56] VITALS: BP 124/58; PULSE 83; RESP 18; TEMP 36.6; O2SAT 100; BMI 21.4
[2022-08-07 17:41] LABS: Appearance Urine UA CLEAR; Bilirubin Urine UA NEGATIVE (NEGATIVE); Color Urine UA YELLOW; Glucose Urine UA NEGATIVE (Negative); Ketones Urine UA NEGATIVE (NEGATIVE); Leukocyte Esterase Urine UA 2+ (NEGATIVE); Nitrite Urine UA POSITIVE (Negative); Occult Blood Urine UA 2+ (Negative); Protein Urine UA NEGATIVE (Negative); Specific Gravity Urine UA <=1.005 (1.000-1.035); Urobilinogen Urine UA 0.2 E.U./dL (0.2)
[2022-08-07 17:46] LABS: Bacteria Urine Moderate (10-30); RBC Urine 5-10/HPF (0-5/HPF); Squamous Epithelial Cell Urine 1-5 /HPF (0-5/HPF); WBC Urine 10-30/HPF (0-5/HPF)
[2022-08-07 17:47] LABS: Culture Indicated Urine Specimen Cultured
[2022-08-07 18:40] VITALS: BP 140/68; PULSE 85; O2SAT 100
--- NOTE | 2022-08-07 19:46 | ED.FEMALEGU ---
HPI - Female Genitourinary General Chief complaint: Urogenital-Female Stated complaint: Cath issues/ blood in urine, post hernia surgery Time Seen by Provider: 08/07/22 19:24 Source: patient Mode of arrival: Family Vehicle History of Present Illness HPI Narrative: Patient is a 76-year-old female with recent incisional ventral hernia repair and iatrogenic bladder injury with now Zelaya catheter placed presenting today with hematuria. She reports that postoperatively she was placed on Levaquin she finished Levaquin 3 or 4 days ago. She has been healing and doing well. She has typical postop pain in abdomen but it seems to be overall doing well. Today she noticed some blood which concerned her she came to the ED. She denies any fever chills nausea or vomiting no back pain. She chest pain or shortness of breath. Urine has actually cleared reports that it was the color of port-wine but it is now clearly yellow. Related Data Home Medications Medication Instructions Recorded Confirmed aspirin 81 mg tablet,delayed 81 mg PO DAILY 06/28/22 07/30/22 release (Adult Low Dose Aspirin) calcium citrate [Citracal] 1 tab PO DAILY 06/28/22 07/30/22 cholecalciferol (vitamin D3) 100 100 mcg PO DAILY 06/28/22 07/30/22 mcg (4,000 unit) tablet coenzyme [id number] ox [Rx 1 tab PO DAILY 06/28/22 07/30/22 Balance Statin] flaxseed oil 1 tab PO DAILY 06/28/22 07/30/22 magnesium 1 tab PO DAILY 06/28/22 07/30/22 methimazole 10 mg tablet 10 mg PO DAILY 06/28/22 07/30/22 vitamin K2 1 tab PO DAILY 06/28/22 07/30/22 Previous Rx's Medication Instructions Recorded acetaminophen 325 mg capsule 650 mg PO QID PRN pain #60 caps 07/26/22 (Tylenol) docusate sodium 100 mg capsule 100 mg PO BID #30 caps 07/26/22 (Colace) ibuprofen 200 mg tablet 400 mg PO Q6H #60 tabs 07/26/22 levofloxacin 500 mg tablet 500 mg PO DAILY #7 tabs 07/26/22 oxycodone 5 mg tablet 5 mg PO Q6H PRN pain #20 tabs 03/02/23 cephalexin 500 mg capsule 500 mg PO BID 7 days #14 caps 08/07/22 Allergies Allergy/AdvReac Type Severity Reaction Status Date / Time No Known Drug Allergies Allergy Verified 08/07/22 17:06 Review of Systems Review of Systems ROS Unobtainable: All systems reviewed & are unremarkable except as noted in HPI and below Patient History Medical History Allergic rhinitis Asthma Graves disease (~2007) HLD (hyperlipidemia) Osteoporosis Rupture of colon Steatohepatitis, non-alcoholic Surgical History History of colostomy reversal Hx of colonoscopy (06/11/22) Hx of colostomy Family History Mother Hypertension Stroke Brother Hypertension alcohol intake frequency: 0-2 drinks per day Substance Use Type: does not use Exam Initial Vital Signs Initial Vital Signs: Vital Signs Temperature 97.9 F 08/07/22 16:56 Pulse Rate 83 08/07/22 16:56 Respiratory Rate 18 08/07/22 16:56 Blood Pressure 124/58 L 08/07/22 16:56 Pulse Oximetry 100 08/07/22 16:56 Oxygen Delivery Method Room Air 08/07/22 16:56 GENERAL: Alert pleasant 76-year-old female and in no acute distress. HEENT: Head atraumatic,EOMI, pupils reactive, face symmetric, moist mucous membranes CARDIOVASCULAR: Regular rate and rhythm without murmurs, rubs or gallops. RESPIRATORY: Breath sounds equal bilaterally, no wheezes rales or rhonchi. ABDOMEN: Soft, surgical bandage still in place : No CVA tenderness, Zelaya catheter in place clear yellow urine now no obvious hematuria EXTREMITIES: Normal range of motion, no clubbing or edema. Neurovascularly intact NEUROLOGICAL: Alert and oriented x4. SKIN: Warm, dry, no laceration, no petechiae, no rashes or lesions. Course Orders Ordered: Discontinued Medications Cefazolin Sodium (Cephalexin 250 Mg Cap Prepack) 1 bottle [facility] Stop: 08/07/22 20:03 Last Admin: 08/07/22 20:09 Dose: 1 bottle Documented By: TATIANA Vital Signs Vital signs: Vital Signs - 8 hr 08/07/22 16:56 08/07/22 18:40 08/07/22 18:40 Temperature 97.9 F Pulse Rate 83 85 Respiratory Rate 18 Blood Pressure 124/58 L 140/68 Pulse Oximetry 100 100 Oxygen Delivery Method Room Air MDM - Female Genitourinary Lab Data Labs: Lab Results 08/07/22 Range/Units 17:12 Urine Color Yellow Urine Appearance Clear Urine pH 6.0 (4.5-8.0) Ur Specific [place] <=1.005 (1.000-1.035) Urine Protein Negative (Negative) Urine Glucose (UA) Negative (Negative) g/dL Urine Ketones Negative (NEGATIVE) Urine Occult Blood 2+ H (Negative) Urine Nitrate Positive H (Negative) Urine Bilirubin Negative (NEGATIVE) Urine Urobilinogen 0.2 (0.2) E.U./dL Ur Leukocyte Esterase 2+ H (NEGATIVE) Urine RBC 5-10/hpf H (0-5/HPF) Urine WBC 10-30/hpf H (0-5/HPF) Ur Squamous Epith Cells 1-5 /hpf (0-5/HPF) Urine Bacteria Moderate (10-30) H (None) Urine Yeast 10-30/hpf H (None) Ur Culture Indicated? Specimen cultured MDM Narrative Medical decision making narrative: Patient is 76-year-old female who had recent surgery with iatrogenic bladder injury presents today with hematuria. She has an obvious UTI with nitrates and blood the urine has cleared while in the emergency department. She has overall been improving from her recent surgery. She is afebrile no flank pain no nausea no vomiting. She is scheduled to have specific CT in 2 days to check the status of the bladder injury. Patient reports that a CT needs to be done with methylene blue for evidence of leak. Without significant abdominal tenderness fever tachycardia or other symptoms. I feel like she has a UTI secondary to catheter placement Discharge Plan Departure Patient Disposition: Home Clinical Impression: Acute UTI Instructions: DI for Urinary Tract Infection (UTI) Activity Restrictions/Additional Instructions: *You have been diagnosed with UTI *What to do: At this time I feel it is reasonable for you to have a regularly scheduled CT scan in 2 days. That is get you started on a different antibiotic. If the antibiotic needs to be changed we will call you in about 2-3 days when the culture comes back. Please continue all postoperative instructions *Continue to take medications as directed Keflex 500 mg twice a day for 7 days *Follow up with your primary care provider in 2-3 days or call [phone] *Return to ER if you should have increasing pain fever vomiting persistent blood [or] any new, worsening or concerning symptoms Prescriptions: New cephalexin 500 mg capsule 500 mg PO BID 7 Days Qty: 14 0RF No Action aspirin [Adult Low Dose Aspirin] 81 mg tablet,delayed release (DR/EC) 81 mg PO DAILY methimazole 10 mg tablet 10 mg PO DAILY cholecalciferol (vitamin D3) 100 mcg (4,000 unit) tablet 100 mcg PO DAILY calcium citrate [Citracal] 1 tab PO DAILY magnesium 1 tab PO DAILY vitamin K2 1 tab PO DAILY coenzyme [id number] ox [Rx Balance Statin] 1 tab PO DAILY flaxseed oil 1 tab PO DAILY ibuprofen 200 mg tablet 400 mg PO Q6H Qty: 60 0RF docusate sodium [Colace] 100 mg capsule 100 mg PO BID Qty: 30 0RF oxycodone 5 mg tablet 5 mg PO Q6H PRN (Reason: pain) Qty: 20 0RF acetaminophen [Tylenol] 325 mg capsule 650 mg PO QID PRN (Reason: pain) Qty: 60 0RF levofloxacin 500 mg tablet 500 mg PO DAILY Qty: 7 0RF Referrals: Miscellaneous,Doctor, MD [Primary Care Provider] - Stand Alone Forms: Patient Portal/API
[2022-08-07] MEDS: cephALEXin 250 MG CAP PREPACK 1 BOTTLE MISC (20:09)
== END 2022-08-07 20:14 | disposition home or self-care (01) ==
PROVIDERS: Emergency Medicine; Emergency Provider Emergency Medicine
DX: N39.0 Urinary tract infection, site not specified (principal); R31.9 Hematuria, unspecified
CPT/HCPCS: 81001; 87077; 87086; 87186; 99281; 99283

== ENCOUNTER → 2022-08-09 13:12 | Outpatient (CLI) | payer MEDICARE, OTHER, SELFPAY ==
[2022-07-25 12:44] VITALS: BMI 21.4
--- NOTE | 2022-08-09 13:12 | DI.CT.S_ITS ---
PROCEDURE: CT CYSTOGRAM INDICATIONS: repair of bladder dome 2 weeks TECHNIQUE: Both before and after gravity instillation of 10% Isovue contrast solution into the bladder through a Zelaya catheter, 5 mm axial images acquired from the bladder dome to the symphysis. 5 mm thick coronal and sagittal reformats were acquired. For radiation dose reduction, the following was used: automated exposure control, adjustment of mA and/or kV according to patient size. COMPARISON: None. FINDINGS: Image quality: Excellent. Genitourinary: Initially on precontrast images, the bladder is decompressed, drained by Zelaya catheter. No ureteral dilatation. Following instillation of contrast into the urinary bladder, the bladder is appropriately distended and there are no bladder wall defects. No extravasation of contrast. There is air present anteriorly in the urinary bladder. There is no reflux of contrast into the distal ureters. Peritoneum and bowel: Increased quantity of stool present in the colon. No suspicious colon wall thickening. The visible small bowel loops are within normal limits. No significant free fluid in the pelvis. Nodes and vessels: No iliac, pelvic, or inguinal adenopathy by size criteria. Iliac vessels are normal in size. Bones: No suspicious bony lesions. Miscellaneous: There is an anterior abdominal wall fluid collection in the subcutaneous tissues, remaining extraperitoneal. This extends from the umbilicus caudal for a length of about 9.5 cm. There is minimal surrounding inflammation in the subcutaneous fat. A thickened wall is not appreciated. IMPRESSION: 1. No evidence of contrast extravasation from the urinary bladder. 2. 9.5 cm subcutaneous fluid collection suggestive of a seroma or organizing hematoma. Correlate with any systemic symptoms as abscess is not entirely excluded, but felt less likely. Dictated by: Trisha Sumner M.D. on 08/09/2022 at 15:47 Approved by: Trisha Sumner M.D. on 08/09/2022 at 15:55
== END ==
PROVIDERS: Referring Provider Surgery; Visit Provider Surgery
DX: S37.20XA Unspecified injury of bladder, initial encounter (principal); Z48.89 Encounter for other specified surgical aftercare
CPT/HCPCS: 72194; 99212

== ENCOUNTER → 2022-08-17 11:02 | Outpatient (CLI) | payer MEDICARE, OTHER, SELFPAY ==
[2022-08-13 13:21] VITALS: BMI 21.4
[2022-08-17 12:49] LABS: Appearance Urine UA CLEAR; Bilirubin Urine UA NEGATIVE (NEGATIVE); Color Urine UA YELLOW; Glucose Urine UA NEGATIVE (Negative); Ketones Urine UA NEGATIVE (NEGATIVE); Leukocyte Esterase Urine UA NEGATIVE (NEGATIVE); Nitrite Urine UA NEGATIVE (Negative); Occult Blood Urine UA TRACE-INTACT (Negative); Protein Urine UA NEGATIVE (Negative); Specific Gravity Urine UA <=1.005 (1.000-1.035); Urobilinogen Urine UA 0.2 E.U./dL (0.2)
[2022-08-17 12:52] LABS: pH Urine UA 6.5 (4.5-8.0)
[2022-08-17 13:01] LABS: Bacteria Urine None Seen; Culture Indicated Urine Cult Not Indicated; RBC Urine None Seen (0-5/HPF); Squamous Epithelial Cell Urine None Seen (0-5/HPF); WBC Urine None Seen (0-5/HPF)
== END ==
PROVIDERS: Referring Provider Surgery; Visit Provider Surgery
DX: Z48.89 Encounter for other specified surgical aftercare (principal)
CPT/HCPCS: 81001

== ENCOUNTER → 2022-10-01 14:29 | Outpatient (CLI) | payer MEDICARE, OTHER, SELFPAY ==
[2022-08-13 13:21] VITALS: BMI 21.4
[2022-10-01 15:20] LABS: Hematocrit 29.5 % (36-46); Hemoglobin 9.9 g/dL (12.0-16.0); Mean Corpuscular HGB Conc 33.3 % (30-36); Mean Corpuscular Hemoglobin 26.2 PG (26-34); Mean Corpuscular Volume 78.6 fL (80-100); Platelet Count 254 X10^3/uL (150-400); Red Blood Cell Count 3.76 X10^6/uL (4.0-5.2); Red Cell Distribution Width 13.9 % (11.6-14.8)
[2022-10-01 15:48] LABS: Alanine Aminotransferase 23 IU/L (<35); Albumin 3.8 g/dL (3.5-5.0); Albumin Globulin Ratio 1.5 (1.0-2.8); Alkaline Phosphatase 91 U/L (38-126); Aspartate Aminotransferase 27 IU/L (14-36); BUN Creatinine Ratio 26.9 (6-22); Bilirubin Total 0.2 mg/dL (0.2-1.3); Blood Urea Nitrogen 18 mg/dL (7-17); Calcium 9.5 mg/dL (8.4-10.2); Carbon Dioxide 29 mmol/L (22-32); Chloride 104 mmol/L (98-107); Cholesterol 120 mg/dL (140-199); Estimated Glomerular Filt Rate > 60 mL/min (>60); Globulin 2.5 g/dL (1.7-4.1); Glucose 95 mg/dL (80-110); HDL Cholesterol 62 mg/dL (40-60); HEMOLYSIS < 15 (0-50); LDL Cholesterol Calculated 49 mg/dL (<100); Potassium 4.6 mmol/L (3.4-5.1); Sodium 137 mmol/L (137-145); Total Protein 6.3 g/dL (6.3-8.2); Triglycerides 43 mg/dL (35-150)
[2022-10-01 16:13] LABS: TSH w/ Reflex to FT4 < 0.02 uIU/mL (0.47-4.68)
[2022-10-01 16:50] LABS: Free T4, Direct Thyroxine 0.87 ng/dL (0.78-2.19)
== END ==
PROVIDERS: PCP Internal Medicine; Referring Provider Internal Medicine; Visit Provider Internal Medicine
DX: E78.2 Mixed hyperlipidemia (principal); M81.0 Age-related osteoporosis without current pathological fracture
CPT/HCPCS: 36415; 80053; 80061; 84439; 84443; 85027

== ENCOUNTER → 2023-01-23 10:59 | Outpatient (CLI) | payer MEDICARE, OTHER, SELFPAY ==
[2022-08-13 13:21] VITALS: BMI 21.4
--- NOTE | 2023-01-23 | DI.MG.S_ITS ---
BILATERAL DIGITAL SCREENING MAMMOGRAM 3D/2D WITH CAD: 01/23/2023 CLINICAL: Routine screening. Family history of breast cancer. Comparison is made to exams dated: 10/30/2021 mammogram, 10/12/2020 mammogram, and 03/17/2019 mammogram - [facility]. There are scattered areas of fibroglandular density in both breasts (category b / 25%-50% glandular tissue). Current study was also evaluated with a Computer Aided Detection (CAD) system. There are mole markers on both breasts. No significant masses, calcifications, or other findings are seen in either breast. There has been no significant interval change. IMPRESSION: NEGATIVE There is no mammographic evidence of malignancy. A 1 year screening mammogram is recommended. Based on the Tyrer Cuzick model (a risk assessment model) the patient's lifetime risk is 4.2% and her 10 year risk is 0.0%. According to the ACR, ACS, and NCCN guidelines, an annual breast MRI exam along with mammogram is recommended if the patient's lifetime risk is 20% or greater. This exam was interpreted at Station ID: [id number]. NOTE: For mammograms, a report in lay terms will be sent to the patient. Approximately 15% of breast malignancies will not be visualized mammographically. In the management of a palpable breast mass, a negative mammogram must not discourage biopsy of a clinically suspicious lesion. Electronically Signed By: James perea/dane:01/23/2023 17:38:30 letter sent: Normal Exam ACR BI-RADS Category 1: Negative [id number]
== END ==
PROVIDERS: PCP Internal Medicine; Referring Provider Internal Medicine; Visit Provider Internal Medicine
DX: Z12.31 Encounter for screening mammogram for malignant neoplasm of breast (principal); Z80.3 Family history of malignant neoplasm of breast
CPT/HCPCS: 77063; 77067

== ENCOUNTER → 2023-04-24 15:35 | Outpatient (CLI) | payer MEDICARE, OTHER, SELFPAY ==
[2022-08-13 13:21] VITALS: BMI 21.4
[2023-04-24 17:08] LABS: Hematocrit 30.5 % (36-46); Hemoglobin 10.1 g/dL (12.0-16.0); Mean Corpuscular Hemoglobin 25.5 PG (26-34); Mean Corpuscular Volume 77.2 fL (80-100); Platelet Count 259 X10^3/uL (150-400); Red Blood Cell Count 3.95 X10^6/uL (4.0-5.2); Red Cell Distribution Width 16.6 % (11.6-14.8); White Blood Cell Count 4.9 X10^3/uL (4.5-11.0)
[2023-04-24 17:22] LABS: HEMOLYSIS < 15 (0-50); Iron 39 ug/dL (37-170)
[2023-04-24 17:33] LABS: Percent Iron Saturation 9 % (15-50); Total Iron Binding Capacity 418 ug/dL (265-497); Transferrin 341 mg/dL (206-381)
[2023-04-24 17:52] LABS: Ferritin 6 ng/mL (11-264)
== END ==
PROVIDERS: PCP Internal Medicine; Referring Provider Internal Medicine; Visit Provider Internal Medicine
DX: D50.9 Iron deficiency anemia, unspecified (principal)
CPT/HCPCS: 36415; 82728; 83540; 83550; 85027

== ENCOUNTER 2023-05-09 16:15 | Emergency (ER) | payer MEDICARE, OTHER, SELFPAY ==
[2022-08-13 13:21] VITALS: BMI 21.4
[2023-05-09] VITALS (17 sets, daily range): BP systolic 120–159; BP diastolic 60–89; PULSE 60–76; RESP 14–32; TEMP 36.6; O2SAT 97–100; BMI 20.5
--- NOTE | 2023-05-09 16:33 | DI.RAD.S_ITS ---
PROCEDURE: XR CHEST 1V INDICATIONS: chest pain TECHNIQUE: One view of the chest was acquired. COMPARISON: [facility], CHEST 2 VIEW, 05/02/2016, 14:31. [facility], CHEST 2 VIEW, 08/29/2015, 10:33. FINDINGS: Surgical changes and devices: None. Lungs and pleura: Lungs are clear. No pleural effusions or pneumothorax. Mediastinum: Mediastinal contours appear normal. Heart size is normal. Bones and chest wall: No suspicious bony lesions. Overlying soft tissues appear unremarkable. IMPRESSION: No acute cardiopulmonary abnormality is seen. Dictated by: Zohaib Meng M.D. on 05/09/2023 at 17:02 Approved by: Zohaib Meng M.D. on 05/09/2023 at 17:02
[2023-05-09 17:04] LABS: Prothrombin Time 11.9 SECONDS (9.4-12.5)
[2023-05-09 17:06] LABS: Add Manual Diff / Slide Review NO; Basophils Absolute Auto 0 /uL (0-100); Basophils Percent Auto 0.7 % (0-2); Eosinophils Absolute Auto 200 /uL (0-450); Eosinophils Percent Auto 2.5 % (2-4); Hematocrit 30.2 % (36-46); Hemoglobin 9.9 g/dL (12.0-16.0); Lymphocytes Absolute Auto 1000 /uL (1100-4500); Mean Corpuscular HGB Conc 32.9 % (30-36); Mean Corpuscular Hemoglobin 25.4 PG (26-34); Mean Corpuscular Volume 77.1 fL (80-100); Monocytes Absolute Auto 500 /uL (0-900); Monocytes Percent Auto 7.5 % (3-14); Neutrophils Absolute Auto 4700 /uL (1500-7000); Neutrophils Percent Auto 73.3 % (50-75); Platelet Count 247 X10^3/uL (150-400); Red Blood Cell Count 3.91 X10^6/uL (4.0-5.2); Red Cell Distribution Width 16.8 % (11.6-14.8); White Blood Cell Count 6.4 X10^3/uL (4.5-11.0)
[2023-05-09 17:07] LABS: PTT Partial Thromboplastin Tim 28 SECONDS (25.1-36.5)
[2023-05-09 17:19] LABS: Alanine Aminotransferase 17 IU/L (<35); Albumin 4.1 g/dL (3.5-5.0); Albumin Globulin Ratio 1.4 (1.0-2.8); Alkaline Phosphatase 72 U/L (38-126); Aspartate Aminotransferase 27 IU/L (14-36); BUN Creatinine Ratio 38.1 (6-22); Bilirubin Total 0.4 mg/dL (0.2-1.3); Blood Urea Nitrogen 24 mg/dL (7-17); Calcium 9.9 mg/dL (8.4-10.2); Carbon Dioxide 28 mmol/L (22-32); Chloride 104 mmol/L (98-107); Creatine Kinase 42 U/L (30-135); Estimated Glomerular Filt Rate > 60 mL/min (>60); Glucose 103 mg/dL (80-110); Lipase 132 U/L (23-300); Magnesium 2.2 mg/dL (1.6-2.3); Sodium 137 mmol/L (137-145); Total Protein 7.1 g/dL (6.3-8.2)
[2023-05-09 19:25] LABS: HEMOLYSIS 30 (0-50); Troponin I < 0.012 ng/mL (0.01-0.034)
[2023-05-09 19:38] LABS: Thyroid Stimulating Hormone < 0.015 uIU/mL (0.47-4.68)
--- NOTE | 2023-05-09 20:16 | ED.GENADULT ---
HPI - General Adult General Chief complaint: Dizziness Stated complaint: possible medication reaction Time Seen by Provider: 05/09/23 19:19 Source: patient Mode of arrival: Ambulatory History of Present Illness HPI narrative: Patient is a 77-year-old female. History of anemia. Two weeks ago was started on iron supplements by her primary doctor. Also has a history of hypothyroid. For the past week she has had intermittent episodes of not feeling like her heart was beating fast but felt like she could feel her heart beating stronger. It seems to be associated with some lightheadedness. She is never passed out. The symptoms today lasted for several hours. She is having dark-colored stools that have started since she started taking the iron. No headache. No vision changes. No shortness of breath. No chest pain. At the time of my exam she was not having symptoms. Related Data Home Medications Medication Instructions Recorded Confirmed aspirin 81 mg tablet,delayed 81 mg PO DAILY 06/28/22 04/24/23 release (Adult Low Dose Aspirin) flaxseed oil 1 tab PO DAILY 06/28/22 04/24/23 magnesium oxide 500 mg capsule 500 mg PO DAILY 10/01/22 04/24/23 vitamin K2 100 mcg capsule 200 mcg PO DAILY 10/01/22 04/24/23 calcium citrate [Citracal] 5,000 mg PO DAILY 04/24/23 04/24/23 cholecalciferol (vitamin D3) 50 100 mcg PO DAILY 04/24/23 04/24/23 mcg (2,000 unit) capsule methimazole 5 mg tablet 5 mg PO DAILY 04/24/23 04/24/23 Previous Rx's Medication Instructions Recorded rosuvastatin 5 mg tablet 5 mg PO DAILY #90 tabs 10/01/22 ferrous sulfate 325 mg (65 mg 325 mg PO DAILY #30 tabs 05/02/23 iron) tablet Allergies Allergy/AdvReac Type Severity Reaction Status Date / Time No Known Drug Allergies Allergy Verified 04/24/23 12:20 Review of Systems Constitutional Constitutional: Reports system reviewed and no additional complaints, except as documented Cardiovascular Cardiovascular: Reports system reviewed and no additional complaints, except as documented Respiratory Respiratory: Reports system reviewed and no additional complaints, except as documented Gastrointestinal Gastrointestinal: Reports system reviewed and no additional complaints, except as documented Musculoskeletal Musculoskeletal: Reports system reviewed and no additional complaints, except as documented Integumentary/Breasts Skin/Breast: Reports system reviewed and no additional complaints, except as documented Neurologic Neurologic: Reports system reviewed and no additional complaints, except as documented Hematologic/Lymphatic On Anticoagulants: No Patient History Medical History Microcytic anemia Sensorineural hearing loss Graves disease History of colonic polyps Age-related osteoporosis without current pathological fracture Mixed hyperlipidemia Steatohepatitis, non-alcoholic HLD (hyperlipidemia) Allergic rhinitis Asthma Osteoporosis Rupture of colon Graves disease (~2007) Surgical History Hx of colonoscopy (06/11/22) History of colostomy reversal Hx of colostomy Family History Mother Hypertension Stroke Brother Hypertension Social History marital status: household members: spouse lives independently: Yes occupational status: previously employed Smoking Status: Never smoker alcohol intake: never substance use type: does not use Smoking Status: Never smoker alcohol intake frequency: 0-2 drinks per day Substance Use Type: does not use Exam Initial Vital Signs Initial Vital Signs: Vital Signs Temperature 98 F 05/09/23 16:24 Pulse Rate 76 05/09/23 16:24 Respiratory Rate 16 05/09/23 16:24 Blood Pressure 147/81 H 05/09/23 16:24 Pulse Oximetry 98 05/09/23 16:24 Oxygen Delivery Method Room Air 05/09/23 16:24 HENMT Head: normal to inspection and normocephalic Resp Effort & Inspection: normal respiratory effort Auscultation: clear to auscultation bilaterally Cardio Rate: regular rate Rhythm: regular rhythm GI Inspection: normal to inspection and non-distended Skin General: no rashes or lesions noted Neuro General: patient alert, patient awake and moves all extremities Extrem General: normal to inspection and capillary refill normal Course Orders Ordered: ED Orders 05/09/23 14:45 EKG-12 Lead Stat 05/09/23 16:33 XR chest 1V Stat 05/09/23 16:44 Complete Blood Count AUTO DIFF Stat Comprehensive Metabolic Panel Stat Lipase Stat Magnesium Stat PTT Partial Thromboplastin Anthony Stat Prothrombin Time INR Stat TSH [Thyroid Stimulating Hormone] Stat Troponin & CK Cardiac Panel Stat Discontinued Medications Aspirin (Aspirin 81 Mg Chew Tab) 324 mg PO NOW ONE Stop: 05/09/23 16:34 Last Admin: 05/09/23 17:00 Dose: Not Given Documented By: BAILEY Vital Signs Vital signs: Vital Signs - 8 hr 05/09/23 16:24 05/09/23 16:34 05/09/23 16:36 Temperature 98 F Pulse Rate 76 71 63 Respiratory Rate 16 Blood Pressure 147/81 H Pulse Oximetry 98 98 99 Oxygen Delivery Method Room Air 05/09/23 16:36 05/09/23 16:55 05/09/23 16:55 Temperature Pulse Rate 65 Respiratory Rate 24 Blood Pressure 159/76 H 159/60 H Pulse Oximetry 100 Oxygen Delivery Method 05/09/23 17:00 05/09/23 17:00 05/09/23 17:16 Temperature Pulse Rate 62 60 Respiratory Rate 23 15 Blood Pressure 140/63 Pulse Oximetry 99 99 Oxygen Delivery Method 05/09/23 17:16 05/09/23 17:30 05/09/23 17:30 Temperature Pulse Rate 65 Respiratory Rate 28 H Blood Pressure 132/75 129/77 Pulse Oximetry 98 Oxygen Delivery Method 05/09/23 17:45 05/09/23 17:45 05/09/23 18:00 Temperature Pulse Rate 63 61 Respiratory Rate 23 22 Blood Pressure 135/73 Pulse Oximetry 98 99 Oxygen Delivery Method 05/09/23 18:00 05/09/23 18:30 05/09/23 18:51 Temperature Pulse Rate 63 66 Respiratory Rate 14 Blood Pressure 142/74 H 140/66 Pulse Oximetry 99 98 Oxygen Delivery Method 05/09/23 18:51 05/09/23 19:00 05/09/23 19:00 Temperature Pulse Rate 62 Respiratory Rate 32 H Blood Pressure 143/68 H 137/72 Pulse Oximetry 98 Oxygen Delivery Method Room Air 05/09/23 19:15 05/09/23 19:15 05/09/23 19:30 Temperature Pulse Rate 61 61 Respiratory Rate 20 20 Blood Pressure 135/75 Pulse Oximetry 97 98 Oxygen Delivery Method Room Air Room Air 05/09/23 19:30 05/09/23 19:45 05/09/23 19:45 Temperature Pulse Rate 61 Respiratory Rate 19 Blood Pressure 139/74 123/73 Pulse Oximetry 97 Oxygen Delivery Method Room Air 05/09/23 20:00 05/09/23 20:00 05/09/23 20:15 Temperature Pulse Rate 70 Respiratory Rate 20 Blood Pressure 120/88 124/89 Pulse Oximetry 97 Oxygen Delivery Method Room Air 05/09/23 20:15 Temperature Pulse Rate 61 Respiratory Rate 18 Blood Pressure Pulse Oximetry Oxygen Delivery Method Medical Decision Making Lab Data Lab results reviewed: Yes I reviewed the patient's lab results. 05/09/23 16:44 05/09/23 16:44 Labs: Lab Results 05/09/23 Range/Units 16:44 WBC 6.4 (4.5-11.0) X10^3/uL RBC 3.91 L (4.0-5.2) X10^6/uL Hgb 9.9 L (12.0-16.0) g/dL Hct 30.2 L (36-46) % MCV 77.1 L (80-100) fL MCH 25.4 L (26-34) PG MCHC 32.9 (30-36) % RDW 16.8 H (11.6-14.8) % Plt Count 247 (150-400) X10^3/uL Neut % (Auto) 73.3 (50-75) % Lymph % (Auto) 16.0 L (25-40) % [place] % (Auto) 7.5 (3-14) % Eos % (Auto) 2.5 (2-4) % Baso % (Auto) 0.7 (0-2) % Neut # (Auto) 4700 (7101-9027) /uL Lymph # (Auto) 1000 L (0694-1512) /uL [place] # (Auto) 500 (0-900) /uL Eos # (Auto) 200 (0-450) /uL Baso # (Auto) 0 (0-100) /uL PT 11.9 (9.4-12.5) SECONDS INR 1.0 (0.9-1.3) APTT 28 (25.1-36.5) SECONDS Sodium 137 (137-145) mmol/L Potassium 4.0 (3.4-5.1) mmol/L Chloride 104 (98-107) mmol/L Carbon Dioxide 28 (22-32) mmol/L BUN 24 H (7-17) mg/dL Creatinine 0.63 (0.52-1.04) mg/dL Estimated GFR > 60 (>60) mL/min BUN/Creatinine Ratio 38.1 H (6-22) Glucose 103 (80-110) mg/dL Calcium 9.9 (8.4-10.2) mg/dL Magnesium 2.2 (1.6-2.3) mg/dL Total Bilirubin 0.4 (0.2-1.3) mg/dL AST 27 (14-36) IU/L ALT 17 (<35) IU/L Alkaline Phosphatase 72 (38-126) U/L Total Creatine Kinase 42 (30-135) U/L Troponin I < 0.012 (0.01-0.034) ng/mL Total Protein 7.1 (6.3-8.2) g/dL Albumin 4.1 (3.5-5.0) g/dL Globulin 3.0 (1.7-4.1) g/dL Albumin/Globulin Ratio 1.4 (1.0-2.8) Lipase 132 (23-300) U/L TSH < 0.015 L (0.47-4.68) uIU/mL Imaging Data Chest x-ray: Radiologist's Impression: PROCEDURE: XR CHEST 1V INDICATIONS: chest pain TECHNIQUE: One view of the chest was acquired. COMPARISON: [facility], CHEST 2 VIEW, 05/02/2016, 14:31. [facility], CHEST 2 VIEW, 08/29/2015, 10:33. FINDINGS: Surgical changes and devices: None. Lungs and pleura: Lungs are clear. No pleural effusions or pneumothorax. Mediastinum: Mediastinal contours appear normal. Heart size is normal. Bones and chest wall: No suspicious bony lesions. Overlying soft tissues appear unremarkable. IMPRESSION: No acute cardiopulmonary abnormality is seen. ECG Data Attestation: I personally reviewed and interpreted this ECG as follows: Interpretation: Sinus rhythm Ventricular rate 65 Normal axis Normal QRS Normal QTC No ST T wave changes MDM Narrative Medical decision making narrative: At the time of my exam patient was not having any symptoms. Her EKGs unremarkable. Sinus rhythm on the monitor. Her TSH is low however she did talk with her [employer] architect who stated that they were not going to make any changes to her medications. Patient is anemic however there was no signs of active bleeding. She is on iron. I suspect that her dark stools is related to the iron. There was no indication for blood transfusion. Also given that her symptoms are intermittent I feel that her anemia is not the cause of this today. We did discuss the possibility of a transient arrhythmia. Will have her contact her primary doctor to discuss the indications for a Holter monitor. We discussed return precautions and follow-up instructions. She expressed understanding and agreement. Discharge Plan Departure Patient Disposition: Home Clinical Impression: Palpitations Instructions: DI for Palpitations Activity Restrictions/Additional Instructions: I do recommend that you continue to take all of your medications as directed. I do recommend you contact your primary doctor to discuss follow-up in the indications for a Holter monitor. Return to the emergency department for new symptoms. Prescriptions: No Action ferrous sulfate 325 mg (65 mg iron) tablet 325 mg PO DAILY Qty: 30 0RF vitamin K2 100 mcg capsule 200 mcg PO DAILY magnesium oxide 500 mg capsule 500 mg PO DAILY rosuvastatin 5 mg tablet 5 mg PO DAILY Qty: 90 3RF methimazole 5 mg tablet 5 mg PO DAILY cholecalciferol (vitamin D3) 50 mcg (2,000 unit) capsule 100 mcg PO DAILY aspirin [Adult Low Dose Aspirin] 81 mg tablet,delayed release (DR/EC) 81 mg PO DAILY flaxseed oil 1 tab PO DAILY calcium citrate [Citracal] 5,000 mg PO DAILY Referrals: Homer Dawson MD [Primary Care Provider] - Stand Alone Forms: Patient Portal/API
== END 2023-05-09 20:33 | disposition home or self-care (01) ==
PROVIDERS: Emergency Medicine; Emergency Provider Emergency Medicine; PCP Internal Medicine
DX: R00.2 Palpitations (principal)
CPT/HCPCS: 36415; 71045; 80053; 82550; 83690; 83735; 84443; 84484; 85025; 85610; 85730; 93005; 93010; 99284

== ENCOUNTER → 2023-07-08 14:36 | Outpatient (CLI) | payer MEDICARE, OTHER, SELFPAY ==
[2022-08-13 13:21] VITALS: BMI 21.4
[2023-07-08 17:25] LABS: Occult Blood 1 Negative (Negative)
[2023-07-08 17:26] LABS: Occult Blood 2 Negative (Negative); Occult Blood 3 Negative (Negative)
== END ==
PROVIDERS: PCP Internal Medicine; Referring Provider Internal Medicine; Visit Provider Internal Medicine
DX: D50.9 Iron deficiency anemia, unspecified (principal)
CPT/HCPCS: 82270

== ENCOUNTER → 2023-07-24 09:29 | Outpatient (CLI) | payer MEDICARE, OTHER, SELFPAY ==
[2022-08-13 13:21] VITALS: BMI 21.4
== END ==
LOC: CAR 09:30
PROVIDERS: PCP Internal Medicine; Referring Provider Internal Medicine; Visit Provider Internal Medicine
DX: R00.2 Palpitations (principal)
CPT/HCPCS: 93242

== ENCOUNTER → 2023-09-03 13:42 | Outpatient (CLI) | payer MEDICARE, OTHER, SELFPAY ==
[2022-08-13 13:21] VITALS: BMI 21.4
[2023-09-03 14:28] LABS: Hematocrit 35.7 % (36-46); Hemoglobin 11.9 g/dL (12.0-16.0); Mean Corpuscular HGB Conc 33.5 % (30-36); Mean Corpuscular Hemoglobin 29.1 PG (26-34); Mean Corpuscular Volume 86.7 fL (80-100); Platelet Count 190 X10^3/uL (150-400); Red Blood Cell Count 4.11 X10^6/uL (4.0-5.2); Red Cell Distribution Width 13.9 % (11.6-14.8); White Blood Cell Count 5.3 X10^3/uL (4.5-11.0)
[2023-09-03 18:13] LABS: Ferritin 15 ng/mL (11-264)
[2023-09-04 01:55] LABS: HEMOLYSIS < 15 (0-50); Iron 104 ug/dL (37-170)
[2023-09-04 02:08] LABS: Percent Iron Saturation 33 % (15-50); Total Iron Binding Capacity 316 ug/dL (265-497); Transferrin 234 mg/dL (206-381)
== END ==
PROVIDERS: PCP Internal Medicine; Referring Provider Internal Medicine; Visit Provider Internal Medicine
DX: D64.9 Anemia, unspecified (principal); D50.9 Iron deficiency anemia, unspecified
CPT/HCPCS: 36415; 82728; 83540; 83550; 85027

== ENCOUNTER → 2023-12-04 10:08 | Outpatient (CLI) | payer MEDICARE, OTHER, SELFPAY ==
[2022-08-13 13:21] VITALS: BMI 21.4
[2023-12-04 11:54] LABS: Alanine Aminotransferase 21 IU/L (<35); Albumin Globulin Ratio 1.5 (1.0-2.8); Alkaline Phosphatase 87 U/L (38-126); Aspartate Aminotransferase 34 IU/L (14-36); BUN Creatinine Ratio 32.1 (6-22); Bilirubin Total 0.5 mg/dL (0.2-1.3); Blood Urea Nitrogen 17 mg/dL (7-17); Calcium 8.9 mg/dL (8.4-10.2); Carbon Dioxide 29 mmol/L (22-32); Chloride 107 mmol/L (98-107); Estimated Glomerular Filt Rate > 60 mL/min (>60); Globulin 2.7 g/dL (1.7-4.1); Glucose 93 mg/dL (80-110); HEMOLYSIS < 15 (0-50); Potassium 4.3 mmol/L (3.4-5.1); Sodium 140 mmol/L (137-145); Total Protein 6.7 g/dL (6.3-8.2)
[2023-12-04 11:57] LABS: Free T3, Triiodothyronine Free 5.19 pg/mL (2.77-5.27); Free T4, Direct Thyroxine 1.34 ng/dL (0.78-2.19)
== END ==
PROVIDERS: PCP Internal Medicine; Referring Provider Internal Medicine Endocrinology, Diabetes & Metabolism; Visit Provider Internal Medicine Endocrinology, Diabetes & Metabolism
DX: E05.90 Thyrotoxicosis, unspecified without thyrotoxic crisis or storm (principal); E05.00 Thyrotoxicosis with diffuse goiter without thyrotoxic crisis or storm
CPT/HCPCS: 36415; 80053; 84439; 84481

== ENCOUNTER → 2024-06-29 12:22 | Outpatient (CLI) | payer MEDICARE, OTHER, SELFPAY ==
[2022-08-13 13:21] VITALS: BMI 21.4
[2024-06-29 13:03] LABS: Hematocrit 41.5 % (36-46); Hemoglobin 13.8 g/dL (12.0-16.0); Mean Corpuscular HGB Conc 33.4 % (30-36); Mean Corpuscular Hemoglobin 29.3 PG (26-34); Mean Corpuscular Volume 87.7 fL (80-100); Platelet Count 219 X10^3/uL (150-400); Red Blood Cell Count 4.73 X10^6/uL (4.0-5.2); Red Cell Distribution Width 12.9 % (11.6-14.8); White Blood Cell Count 5.9 X10^3/uL (4.5-11.0)
[2024-06-29 13:17] LABS: HEMOLYSIS 23 (0-50); Iron 87 ug/dL (37-170)
[2024-06-29 13:20] LABS: Alanine Aminotransferase 39 IU/L (<35); Albumin 4.4 g/dL (3.5-5.0); Albumin Globulin Ratio 1.8 (1.0-2.8); Alkaline Phosphatase 112 U/L (38-126); Aspartate Aminotransferase 43 IU/L (14-36); BUN Creatinine Ratio 26.5 (6-22); Bilirubin Total 0.6 mg/dL (0.2-1.3); Blood Urea Nitrogen 13 mg/dL (7-17); Calcium 9.6 mg/dL (8.4-10.2); Carbon Dioxide 25 mmol/L (22-32); Chloride 107 mmol/L (98-107); Cholesterol 129 mg/dL (140-199); Estimated Glomerular Filt Rate > 60 mL/min (>60); Globulin 2.5 g/dL (1.7-4.1); Glucose 97 mg/dL (80-110); HDL Cholesterol 68 mg/dL (40-60); HEMOLYSIS 19 (0-50); LDL Cholesterol Calculated 48 mg/dL (<100); Potassium 4.3 mmol/L (3.4-5.1); Sodium 139 mmol/L (137-145); Total Protein 6.9 g/dL (6.3-8.2); Triglycerides 66 mg/dL (35-150)
[2024-06-29 13:27] LABS: Percent Iron Saturation 31 % (15-50); Total Iron Binding Capacity 277 ug/dL (265-497); Transferrin 250 mg/dL (206-381)
[2024-06-29 13:52] LABS: Ferritin 48 ng/mL (11-264)
== END ==
PROVIDERS: PCP Internal Medicine; Referring Provider Internal Medicine; Visit Provider Internal Medicine
DX: D50.9 Iron deficiency anemia, unspecified (principal); E78.2 Mixed hyperlipidemia; E05.00 Thyrotoxicosis with diffuse goiter without thyrotoxic crisis or storm
CPT/HCPCS: 36415; 80053; 80061; 82728; 83540; 83550; 85027

== ENCOUNTER → 2024-07-15 12:10 | Outpatient (CLI) | payer MEDICARE, OTHER, SELFPAY ==
[2022-08-13 13:21] VITALS: BMI 21.4
--- NOTE | 2024-07-15 12:11 | DI.RAD.S_ITS ---
PROCEDURE: XR DEXA AXIAL SKELETON INDICATIONS: osteoporosis COMPARISON: [facility], , XR DEXA AXIAL SKELETON, 10/30/2021, 11:53. FINDINGS: Lumbar Spine: Bone mineral density 0.910 (previously 0.905) g/cm2, T score -1.2 (previously-1.3). Left Femoral Neck: Bone mineral density 0.563 (previously 0.569) g/cm2, T score -2.6 (previously-2.5) Left Hip: Bone mineral density 0.783 (previously 0.800) g/cm2, T score -1.3 (previously-1.2). Fracture Risk Calculation (when applicable): 10-year fracture risk of a major osteoporotic fracture 17 percent and of a hip fracture 6 percent. (T score greater or equal to -1.0 to: NORMAL) (T score from -1.1 to -2.4: OSTEOPENIA) (T score less than or equal to -2.5: OSTEOPOROSIS) IMPRESSION: Osteoporosis---recommend repeat DEXA within 2 years or less for reassessment of response to treatment. Follow-up guidelines as follows: Osteoporosis: Consider a repeat DEXA and Vertebral Fracture Assessment (VFA) exam in 2 years or sooner if medically necessary, to reassess this patient's status. Osteopenia: Consider a repeat DEXA in 2-3 years to reassess this patient's status, or if there is a new clinical indication. Normal: Consider a repeat DEXA in 5 years or sooner, or if there is a new clinical indication. All treatment decisions require clinical judgment and consideration of individual patient factors, including patient preferences, comorbidities, previous drug use, risk factors not captured in the FRAX model (e.g., frailty, falls, vitamin D deficiency, increased bone turnover, interval significant decline in bone density ) and possible under- or over-estimation of fracture risk by FRAX. In addition, the NOF Guide recommends that FDA-approved medical therapies be considered in postmenopausal women and men age >= 50 years with a: * Hip or vertebral (clinical or morphometric) fracture * T-score of <=-2.5 at the spine or hip * Ten-year fracture probability by FRAX of >= 3% for hip fracture or >=20% for major osteoporotic fracture. Dictated by: Gopal Moses M.D. on 07/15/2024 at 21:58 Approved by: Gopal Moses M.D. on 07/15/2024 at 22:00
--- NOTE | 2024-07-15 12:11 | DI.MG.S_ITS ---
BILATERAL DIGITAL SCREENING MAMMOGRAM 3D/2D WITH CAD: 07/15/2024 CLINICAL: Routine screening. Family history of breast cancer. Comparison is made to exams dated: 01/23/2023 mammogram, 10/30/2021 mammogram, 10/12/2020 mammogram, 03/17/2019 mammogram, and 03/04/2018 mammogram - [facility]. There are scattered areas of fibroglandular density (category b / 25%-50% glandular tissue). Current study was also evaluated with a Computer Aided Detection (CAD) system. No significant masses, calcifications, or other findings are seen in either breast. There has been no significant interval change. IMPRESSION: NEGATIVE There is no mammographic evidence of malignancy. A 1 year screening mammogram is recommended. Based on the Tyrer Cuzick model (a risk assessment model) the patient's lifetime risk is 3.7% and her 10 year risk is 0.0%. According to the ACR, ACS, and NCCN guidelines, an annual breast MRI exam along with mammogram is recommended if the patient's lifetime risk is 20% or greater. This exam was interpreted at Station ID: [id number]. NOTE: For mammograms, a report in lay terms will be sent to the patient. Approximately 15% of breast malignancies will not be visualized mammographically. In the management of a palpable breast mass, a negative mammogram must not discourage biopsy of a clinically suspicious lesion. Electronically Signed By: Brandy Mcgee M.D., Ph.D. sloan/dane:07/15/2024 22:16:18 letter sent: Normal Exam ACR BI-RADS Category 1: Negative
== END ==
PROVIDERS: PCP Internal Medicine; Referring Provider Internal Medicine; Visit Provider Internal Medicine
DX: Z12.31 Encounter for screening mammogram for malignant neoplasm of breast; Z80.3 Family history of malignant neoplasm of breast; M81.0 Age-related osteoporosis without current pathological fracture
CPT/HCPCS: 77063; 77067; 77080

== ENCOUNTER → 2024-08-24 13:37 | Outpatient (CLI) | payer MEDICARE, OTHER, SELFPAY ==
[2022-08-13 13:21] VITALS: BMI 21.4
[2024-08-24 15:06] LABS: Alanine Aminotransferase 29 IU/L (<35); Aspartate Aminotransferase 36 IU/L (14-36)
[2024-08-24 15:25] LABS: T4 Total Thyroxine 7.14 ug/dL (5.5-11.0)
[2024-08-24 15:43] LABS: Thyroid Stimulating Hormone < 0.015 uIU/mL (0.47-4.68)
== END ==
PROVIDERS: PCP Internal Medicine; Referring Provider Internal Medicine; Visit Provider Internal Medicine
DX: E05.00 Thyrotoxicosis with diffuse goiter without thyrotoxic crisis or storm (principal)
CPT/HCPCS: 36415; 84436; 84443; 84450; 84460

== ENCOUNTER → 2024-12-03 10:49 | Outpatient (CLI) | payer MEDICARE, OTHER, SELFPAY ==
[2022-08-13 13:21] VITALS: BMI 21.4
[2024-12-03 12:07] LABS: Alanine Aminotransferase 21 IU/L (<35)
[2024-12-03 12:39] LABS: TSH w/ Reflex to FT4 < 0.02 uIU/mL (0.47-4.68)
[2024-12-03 13:03] LABS: Free T4, Direct Thyroxine 1.07 ng/dL (0.78-2.19)
== END ==
PROVIDERS: PCP Internal Medicine; Referring Provider Internal Medicine; Visit Provider Internal Medicine
DX: E05.00 Thyrotoxicosis with diffuse goiter without thyrotoxic crisis or storm (principal)
CPT/HCPCS: 36415; 84439; 84443; 84450; 84460

== ENCOUNTER → 2025-03-08 14:26 | Outpatient (CLI) | payer MEDICARE, OTHER, SELFPAY ==
[2022-08-13 13:21] VITALS: BMI 21.4
[2025-03-08 15:44] LABS: Alanine Aminotransferase 23 IU/L (<35)
[2025-03-08 16:17] LABS: TSH w/ Reflex to FT4 < 0.02 uIU/mL (0.47-4.68)
[2025-03-08 16:55] LABS: Free T4, Direct Thyroxine 1.08 ng/dL (0.78-2.19)
== END ==
PROVIDERS: PCP Internal Medicine; Referring Provider Internal Medicine; Visit Provider Internal Medicine
DX: E05.00 Thyrotoxicosis with diffuse goiter without thyrotoxic crisis or storm (principal)
CPT/HCPCS: 36415; 84439; 84443; 84450; 84460